=== PATIENT | female | born 1950 | race Caucasian/White ===

== ENCOUNTER 2018-09-23 09:48 | Emergency (ER) | payer MEDICARE ==
[2018-09-23 10:00] VITALS: RESP 18; TEMP 98.2
--- NOTE | 2018-09-23 10:58 | ED ---
Back Pain HPI - General Chief Complaint: Back Pain/Injury Stated Complaint: hernia Time Seen by Provider: 09/23/18 10:33 Source: patient Limitations: no limitations - History of Present Illness Initial Comments: Patient is a 68-year-old female presenting from the emergency Department with complaints of low back pain 4 days. Patient states she went to [facility] on 2 days ago and received a computed tomography scan of her low back and states they told her she has a small herniated disc in the lumbar area. Patient states they gave her pain medication and sent her out the door. Patient is back today requesting an MRI. Patient denies any falls or other trauma to her lower back. Patient states last months she's been doing a lot of yard work and cleaning. Patient states the pain is on the left lower side with some radiation into her glute. Patient denies any numbness, tingling, loss of bowel or bladder control. Patient states she does not have an orthopedic doctor she sees. Patient denies fever, chills. No other complaints at this time. Upon arrival, patient's vital signs are stable patient is resting comfortably on the bed. - Related Data Home Medications Medication Instructions Recorded Confirmed Atorvastatin [Lipitor] 40 mg PO HS 12/26/15 09/23/18 Insulin Glargine,Hum.rec.anlog 65 unit SQ HS 12/26/15 09/23/18 [Lantus Solostar] Venlafaxine HCl [Effexor] 75 mg PO QAM 12/26/15 09/23/18 metFORMIN HCL 1,000 mg PO BID 12/26/15 09/23/18 Aspirin EC [Ecotrin Low Dose] 81 mg PO DAILY 09/23/18 09/23/18 Fenofibrate Nanocrystallized 145 mg PO DAILY 09/23/18 09/23/18 [Fenofibrate] Allergies Allergy/AdvReac Type Severity Reaction Status Date / Time No Known Allergies Allergy Verified 09/23/18 10:35 Review of Systems ROS Statement: Those systems with pertinent positive or pertinent negative responses have been documented in the HPI. ROS Other: All systems not noted in ROS Statement are negative. Past Medical History Past Medical History: Cancer, Diabetes Mellitus Additional Past Medical History / Comment(s): depression mass behind l eye breast ca History of Any Multi-Drug Resistant Organisms: None Reported Past Surgical History: Breast Surgery, Joint Replacement Past Psychological History: Anxiety, Depression Smoking Status: Former smoker Past Alcohol Use History: None Reported Past Drug Use History: None Reported General Exam - General Exam Comments Initial Comments: GENERAL: Well-appearing, well-nourished and in no acute distress. Patient is moving around the bed and sitting up without difficulty. HEAD: Atraumatic, normocephalic. EYES: Pupils equal round and reactive to light, extraocular movements intact, sclera anicteric, conjunctiva are normal. ENT: TMs normal, nares patent, oropharynx clear without exudates. Moist mucous membranes. NECK: Normal range of motion, supple without lymphadenopathy or JVD. LUNGS: Breath sounds clear to auscultation bilaterally and equal. No wheezes rales or rhonchi. HEART: Regular rate and rhythm without murmurs, rubs or gallops. ABDOMEN: Soft, nontender, normoactive bowel sounds. No guarding, no rebound. No masses appreciated. : Deferred EXTREMITIES: Normal range of motion, no pitting or edema. No clubbing or cyanosis. Patient has full range of motion of her trunk. Sensation is equal in bilateral lower extremities. Neurovascular intact. NEUROLOGICAL: Cranial nerves II through XII grossly intact. Normal speech, normal gait. PSYCH: Normal mood, normal affect. SKIN: Warm, Dry, normal turgor, no rashes or lesions noted. Limitations: no limitations Course Vital Signs 09/23/18 09/23/18 09:57 11:45 Temperature 98.2 F 98.2 F Pulse Rate 93 78 Respiratory 18 18 Rate Blood Pressure 122/72 120/71 O2 Sat by Pulse 99 Oximetry Medical Decision Making - Medical Decision Making Patient is a 68-year-old female presenting with low back pain times one week. Patient did go to [facility] 2 days ago and received a computed tomography scan of her lower back. They stated she had a small herniation in the lumbar area. She is here today requesting an MRI of her back. On exam patient has very mild tenderness of the left paraspinals. Patient is afebrile, no numbness and tingling to lower extremities, no loss of bowel or bladder control. No saddle paresthesia. Discussed with patient that we are not able to do an MRI of her low back in the ER. Patient will be given referral to orthopedics and suggested she take NSAIDs for her pain. Patient is okay with this plan. Patient was given Toradol for her pain today. Patient will be discharged home. Return parameters were discussed with the patient she verbalizes understanding. Disposition Clinical Impression: Low back pain Disposition: HOME SELF-CARE Condition: Stable Instructions (If sedation given, give patient instructions): Acute Low Back Pain (ED) Additional Instructions: Please return to the Emergency Department if symptoms worsen or any other concerns. Follow up with orthopedics as discussed. Is patient prescribed a controlled substance at d/c from ED?: No Referrals: Glenn Meyer MD [Primary Care Provider] - 1-2 days Piero Cyr DO [Doctor of Osteopathic Medicine] - 1-2 days
[2018-09-23] MEDS ORDERED: KETOROLAC 30 MG/ML 1 ML VIAL IM STA (10:59)
[2018-09-23 11:53] VITALS: BP 120/71; PULSE 78
== END 2018-09-23 11:45 | disposition home or self-care (01) ==
LOC: EC 09:48
DX: M51.26 Other intervertebral disc displacement, lumbar region (principal); E11.9 Type 2 diabetes mellitus without complications; F41.9 Anxiety disorder, unspecified; F32.9 Major depressive disorder, single episode, unspecified; Z87.891 Personal history of nicotine dependence; Z79.4 Long term (current) use of insulin; Z79.82 Long term (current) use of aspirin; Z79.899 Other long term (current) drug therapy; Z85.3 Personal history of malignant neoplasm of breast
CPT/HCPCS: 99283; 96372; J1885